=== PATIENT | male | born 1960 | race Caucasian/White ===

== ENCOUNTER 2023-08-20 15:54 | Emergency (ER) | payer BC, SELFPAY ==
[2023-08-20 15:56] VITALS: BP 151/79
[2023-08-20 17:48] VITALS: BMI 25.5
--- NOTE | 2023-08-20 18:13 | ED.GENMED ---
History of Present Illness
<DO Bren Man Last Filed: 08/21/23 22:12>
General
Chief Complaint: Skin Problem
Source: patient
Time Seen by Provider: 08/20/23 17:48
History of Present Illness
History of Present Illness:
62-year-old male presents the emergency room complaining of pain and swelling in his right buttock area. Pain began 2 or 3 days ago and has gotten more severe. Area of redness has extended. No fever or chills. Patient had a liver transplant
2019. He does take his immunosuppressive medications. He takes Plavix but no other oral anticoagulant. Patient denies any abdominal pain.
Past History
<DO Bren Man Last Filed: 08/21/23 22:12>
Past History
ED Past Medical History: Other (Liver transplant in 2019) and Other (DM, cirrhosis, or cancer treated with radioactive implants)
Social History
Tobacco: Other (Cigar smoker)
Alcohol: Former
Family History
Family History: Other (Father with cirrhosis, family history of diabetes and coronary disease)
Phy Exam
<DO Bren Man Last Filed: 08/21/23 22:12>
Physical Exam
Physical Exam:
General: Awake, Alert, Oriented X3. No acute distress.
Vitals: unremarkable
Head: Atraumatic
Eyes: Pupils equal, EOMI
Throat: Airway intact, no exudates
Neck: Trachea midline
Lungs: Clear and equal b/l
Heart: Regular rate, no murmurs
Abd: Soft, Nontender, No pulsatile mass
Buttock: Tenderness palpation over the right buttock. There is erythema noted extending from the top of the gluteal crease down towards the bottom of the buttock. There is induration and fluctuance noted in the center of the erythema on the upper
right near the gluteal crease.
Neuro: Nonfocal
Skin: Warm, dry, no rash
Extremities: pulses equal b/l, no edema
Course
<Pavel Perdomo, - Last Filed: 08/21/23 22:12>
Orders/Labs/Results
Orders:
Orders
08/20/23 18:12
CT Pelvis With Iv Contrast Urgent
Comment:
Reason For Exam: pain, swelling r buttock, eval for deep absces
08/20/23 18:56
Basic Metabolic Panel Urgent
Complete Blood Count/With Diff Urgent
08/20/23 19:19
HYDROmorphone [Dilaudid] 1 mg IV NOW STA
08/20/23 21:28
Oxycodone [Roxicodone] 5 mg PO NOW STA
Abnormal Lab Results
08/20/23
18:56
RBC 3.92 L 10^6/uL
(4.70-6.10)
Hgb 11.3 L g/dL
(13.0-18.0)
Hct 31.8 L %
(39.0-52.0)
Plt Count 112 L 10^3/uL
(130-400)
Absolute Lymphs (auto) 1.1 L 10^3/uL
(1.2-3.4)
Neutrophils % 77.1 H %
(42.2-75.2)
Lymphocytes % 14.8 L %
(20.5-51.1)
Carbon Dioxide 21 L mmol/L
(22-30)
BUN 25 H mg/dl
(9-20)
Creatinine 1.5 H mg/dL
(0.7-1.3)
Glucose 132 H mg/dl
(70-99)
08/20/23 18:56
08/20/23 18:56
Vital Signs
Initial and Last Documented VS:
Initial Vital Signs
Temp Pulse Resp BP Pulse Ox
97.7 F 65 16 151/79 99
08/20/23 15:56 08/20/23 15:56 08/20/23 15:56 08/20/23 15:56 08/20/23 15:56
Last Documented Vital Signs
Temp Pulse Resp BP Pulse Ox
97.7 F 58 20 129/67 98
08/20/23 15:56 08/20/23 21:26 08/20/23 21:26 08/20/23 21:26 08/20/23 21:26
<Doc Chapman MD - Last Filed: 08/20/23 21:30>
Orders/Labs/Results
Orders:
Orders
08/20/23 18:12
CT Pelvis With Iv Contrast Urgent
Comment:
Reason For Exam: pain, swelling r buttock, eval for deep absces
08/20/23 18:56
Basic Metabolic Panel Urgent
Complete Blood Count/With Diff Urgent
08/20/23 19:19
HYDROmorphone [Dilaudid] 1 mg IV NOW STA
08/20/23 21:28
Oxycodone [Roxicodone] 5 mg PO NOW STA
Abnormal Lab Results
08/20/23
18:56
RBC 3.92 L 10^6/uL
(4.70-6.10)
Hgb 11.3 L g/dL
(13.0-18.0)
Hct 31.8 L %
(39.0-52.0)
Plt Count 112 L 10^3/uL
(130-400)
Absolute Lymphs (auto) 1.1 L 10^3/uL
(1.2-3.4)
Neutrophils % 77.1 H %
(42.2-75.2)
Lymphocytes % 14.8 L %
(20.5-51.1)
Carbon Dioxide 21 L mmol/L
(22-30)
BUN 25 H mg/dl
(9-20)
Creatinine 1.5 H mg/dL
(0.7-1.3)
Glucose 132 H mg/dl
(70-99)
08/20/23 18:56
08/20/23 18:56
Vital Signs
Initial and Last Documented VS:
Initial Vital Signs
Temp Pulse Resp BP Pulse Ox
97.7 F 65 16 151/79 99
08/20/23 15:56 08/20/23 15:56 08/20/23 15:56 08/20/23 15:56 08/20/23 15:56
Last Documented Vital Signs
Temp Pulse Resp BP Pulse Ox
97.7 F 58 20 129/67 98
08/20/23 15:56 08/20/23 21:26 08/20/23 21:26 08/20/23 21:26 08/20/23 21:26
Procedures
<DO Bren Man Last Filed: 08/21/23 22:12>
Incision/Drainage/Joint Aspiration
Right Buttock:
Anethesia: 1% Lidocaine with Epi
Preparation: cleaned with Betadine
Type of procedure: incise
Nature of site: abscess
Description of abscess: less than 3cm
Loculations broken up: No
How much fluid was obtained?: none
Treatment: left open for drainage
<DO Bren Man Last Filed: 08/21/23 22:12>
MDM/Problems Addressed
Differential Diagnosis Includes:
cellulitis, cutaneous abscess, deep space abscess
MDM/Problems Addressed:
I+D attempted w/o return of pus. Will obtain CT to exclude deep space abscess
Chronic conditions affecting care: DM and Immunosuppressed
<Pavel Perdomo DO - Last Filed: 08/21/23 22:12>
*Radiology
Radiology exam reviewed: radiology read reviewed
*Critical Care Note
Total Time (30-74mins, 75-104mins- exclusive of procedures): Not Applicable
<Doc Chapman MD - Last Filed: 08/20/23 21:30>
Update Note
Update Note:
CT pelvis report reviewed and discussed with patient. Recommended continuation of his current antibiotic regimen. In addition, advised PCP follow-up or for colorectal surgery consultation as an outpatient, if symptoms persist. Patient expressed
understanding at time of discharge, to the care of his family. Patient otherwise is hemodynamically stable, afebrile, and nontoxic-appearing at time of discharge.
ED Attending Note
<Pavel Perdomo DO - Last Filed: 08/21/23 22:12>
-
Portions of this chart may have been created with voice recognition software.� Occasional wrong word or��sound alike� substitutions may have occurred due to the inherent limitations of voice recognition software.
Discharge Plan
Departure
Patient Disposition: Home (Routine Discharge)
Date of Disposition: 08/20/23
Time of Disposition: 21:00
Patient with high blood pressure during this ER visit?: Yes
Discharge Problem:
Cellulitis
Instructions: Cellulitis (Skin Infection), Adult (DC)
Prescriptions:
New
oxycodone 5 mg tablet
5 mg PO Q8H PRN (Reason: Pain) Qty: 10 0RF
No Action
metoprolol succinate 50 mg Tablet Extended Release 24 Hr
50 mg PO HS
mycophenolate mofetil [CellCept] 250 mg Capsule
500 mg PO BID
clopidogrel [Plavix] 75 mg Tablet
75 mg PO DAILY
tamsulosin [Flomax] 0.4 mg Capsule
0.4 mg PO DAILY
cholecalciferol (vitamin D3) [Vitamin D3] 25 mcg (1,000 unit) Tablet
25 mcg PO DAILY
aspirin 81 mg tablet,chewable
81 mg PO DAILY Qty: 1 0RF
nitroglycerin 0.4 mg tablet, sublingual
0.4 mg sublingual [id number] PRN (Reason: chest pain) Qty: 25 5RF
gabapentin 100 mg Capsule
200 mg PO BID
tacrolimus [Prograf] 1 mg Capsule
4 mg PO Q12H
oxymetazoline [Afrin (oxymetazoline)] 0.05 % [place],Non-Aerosol
2 spray INTRANASAL Q12H PRN (Reason: nasal congestion)
atorvastatin 40 mg tablet
40 mg PO HS
doxycycline hyclate 100 mg Tablet
100 mg PO BID
Humulin 70/30 U-100 Insulin 100 unit/mL (70-30) Suspension
28 unit SC BID
furosemide [Lasix] 40 mg tablet
40 mg PO DAILY Qty: 90 3RF
Rx Instructions:
Please note dose increase
Referrals:
Justyn Leon MD [Active] -
Daniel Magana MD [Family Provider] -
Activity Restrictions/Additional Instructions:
As discussed, please follow-up with your primary care physician and/or referred to colorectal surgeon for reevaluation. In the meantime, please continue to take already prescribed antibiotics. In ED, CT scan did not reveal any evidence of abscess.
Interventions
Interventions:
*Risk Screen - Suicide Last Done: 08/20/23 17:48
*General Assessment Last Done: 08/20/23 15:56
*Neglect/Abuse Screening Last Done: 08/20/23 17:48
ED- Fall Risk Assessment Last Done: 08/20/23 17:48
*ED COVID-19 Vaccine History Last Done: 08/20/23 15:56
*Nursing Disposition Last Done: 08/20/23 21:37
ED-Skin Assessment Last Done: 08/20/23 17:48
Discharge Date and Time
Discharge Date/Time: 08/20/23 21:37
Print Language: EGYPTIAN
[2023-08-20 19:02] LABS: % Basophils 0.3 % (0-2); % Eosinophils 1.1 % (0-6); % Immature Granulocytes 0.3 % (0-0.5); % Lymphocytes 14.8 % (20.5-51.1); % Monocytes 6.4 % (1.7-9.3); % Neutrophils 77.1 % (42.2-75.2); Absolute Eosinophils 0.1 10^3/uL (0-0.7); Absolute Lymphocytes 1.1 10^3/uL (1.2-3.4); Absolute Monocytes 0.5 10^3/uL (0.1-0.6); Absolute Neutrophils 5.6 10^3/uL (1.4-6.5); Hematocrit 31.8 % (39.0-52.0); Hemoglobin 11.3 g/dL (13.0-18.0); Mean Corp Hgb Conc. 35.5 g/dL (33.0-37.0); Mean Corpuscular Hgb 28.8 pg (27.0-31.0); Mean Corpuscular Volume 81.1 fL (80.0-94.0); Mean Platelet Volume 10.3 fL (7.4-10.4); Nucleated Red Blood Cells % 0 % (-); Platelet Count 112 10^3/uL (130-400); Red Blood Cell Count 3.92 10^6/uL (4.70-6.10); Red Cell Dist. Width 13.5 % (11.5-14.5); White Blood Cell Count 7.3 10^3/uL (4.8-10.8)
[2023-08-20] MEDS: DILAUDID 1 MG IV (19:23)
[2023-08-20 19:30] LABS: Blood Urea Nitrogen 25 mg/dl (9-20); Calcium 9.6 mg/dl (8.4-10.2); Carbon Dioxide 21 mmol/L (22-30); Chloride 106 mmol/L (98-107); Estimated Creatinine Clearance 51 ml/min; Glucose 132 mg/dl (70-99); Potassium 4.5 mmol/L (3.5-5.1); Sodium 137 mmol/L (135-145); eGFR 52.97
[2023-08-20 21:26] VITALS: BP 129/67
[2023-08-20] MEDS: ROXICODONE 5 MG PO (21:32)
== END 2023-08-20 21:37 | disposition home or self-care (01) ==
LOC: EMR 15:54
PROVIDERS: EMERGENCY PHYSICIAN Emergency Medicine; FAMILY PHYSICIAN Family Medicine
DX: L03.317 Cellulitis of buttock (principal); R03.0 Elevated blood-pressure reading, without diagnosis of hypertension; E11.9 Type 2 diabetes mellitus without complications; N40.0 Benign prostatic hyperplasia without lower urinary tract symptoms; F17.290 Nicotine dependence, other tobacco product, uncomplicated; Z85.05 Personal history of malignant neoplasm of liver; Z94.4 Liver transplant status; Z79.60 Long term (current) use of unspecified immunomodulators and immunosuppressants; Z79.82 Long term (current) use of aspirin; Z79.4 Long term (current) use of insulin
CPT/HCPCS: 99284; 96374; 72193; 80048; 85025; Q9967

== ENCOUNTER 2023-08-25 08:22 | Inpatient (IN) | payer BC, SELFPAY ==
[2023-08-24 12:13] VITALS: BP 136/60
[2023-08-24 12:29] LABS: % Basophils 0.4 % (0-2); % Eosinophils 1.2 % (0-6); % Immature Granulocytes 0.3 % (0-0.5); % Monocytes 5.2 % (1.7-9.3); % Neutrophils 76.9 % (42.2-75.2); Absolute Eosinophils 0.1 10^3/uL (0-0.7); Absolute Lymphocytes 1.3 10^3/uL (1.2-3.4); Absolute Monocytes 0.4 10^3/uL (0.1-0.6); Hematocrit 33.5 % (39.0-52.0); Hemoglobin 11.8 g/dL (13.0-18.0); Mean Corp Hgb Conc. 35.2 g/dL (33.0-37.0); Mean Corpuscular Hgb 28.2 pg (27.0-31.0); Mean Corpuscular Volume 80.1 fL (80.0-94.0); Mean Platelet Volume 10.6 fL (7.4-10.4); Nucleated Red Blood Cells % 0 % (-); Platelet Count 168 10^3/uL (130-400); Red Blood Cell Count 4.18 10^6/uL (4.70-6.10); Red Cell Dist. Width 12.9 % (11.5-14.5); White Blood Cell Count 7.8 10^3/uL (4.8-10.8)
[2023-08-24 12:47] LABS: ALT (SGPT) 15 U/L (0-50); AST (SGOT) 19 U/L (17-59); Albumin 4.3 g/dl (3.5-5.0); Alkaline Phosphatase 71 U/L (38-126); Blood Urea Nitrogen 18 mg/dl (9-20); Calcium 9.5 mg/dl (8.4-10.2); Carbon Dioxide 23 mmol/L (22-30); Chloride 103 mmol/L (98-107); Glucose 185 mg/dl (70-99); Potassium 5.1 mmol/L (3.5-5.1); Sodium 136 mmol/L (135-145); eGFR 52.97
--- NOTE | 2023-08-24 15:48 | ED.GENMED ---
History of Present Illness
General
Chief Complaint: Skin Problem
Source: patient
Time Seen by Provider: 08/24/23 14:37
History of Present Illness
History of Present Illness:
62-year-old male presents complaining of worsening pain and redness to the right buttock. He was here 5 days ago and was diagnosed with cellulitis of the right buttock. He had a CT scan performed then. He had incision and drainage performed then.
He is a liver transplant patient on antirejection medications. He was started on Augmentin and Bactrim 1 day prior to his visit. Has had 5 total days worth of these antibiotic without any improvement of symptoms. His states he seems off
more weak than usual. Patient notes increased pain. He denies a fever.
Past History
Past History
ED Past Medical History: Other (Liver transplant in 2019) and Other (DM, cirrhosis, or cancer treated with radioactive implants)
Social History
Tobacco: Other (Cigar smoker)
Alcohol: Former
Family History
Family History: Other (Father with cirrhosis, family history of diabetes and coronary disease)
Phy Exam
Physical Exam
Physical Exam:
General: Well-appearing male no acute respiratory distress
HEENT: Normocephalic atraumatic
Heart: Regular rate and rhythm no murmurs
Lungs: Clear no wheeze or rales
skin: Erythema and induration with tenderness noted over the right medial buttock no palpable fluctuance
Extremities: No cyanosis
Course
Orders/Labs/Results
Orders:
Orders
08/24/23 12:20
CMP [Comprehensive Metabolic Panel] Urgent
Complete Blood Count/With Diff Urgent
08/24/23 15:47
Zosyn 3.375 grams IVPB NOW Piperacillin/Tazo 3.375 Gram [Zosyn] 3.375 gram in 50 ml IV NOW
08/24/23 16:00
*Vancomycin IV Pharmacy to Dose VANCOMYCIN Pharmacy to Dose [VANCOCIN Pharmacy to Dose] 1 each Pharmacy To Prepare [Call Pharmacy To Prepare] 0 ml IV PER PROTOCOL
Abnormal Lab Results
08/24/23
12:20
RBC 4.18 L 10^6/uL
(4.70-6.10)
Hgb 11.8 L g/dL
(13.0-18.0)
Hct 33.5 L %
(39.0-52.0)
MPV 10.6 H fL
(7.4-10.4)
Neutrophils % 76.9 H %
(42.2-75.2)
Lymphocytes % 16.0 L %
(20.5-51.1)
Creatinine 1.5 H mg/dL
(0.7-1.3)
Glucose 185 H mg/dl
(70-99)
08/24/23 12:20
08/24/23 12:20
Vital Signs
Initial and Last Documented VS:
Initial Vital Signs
Temp Pulse Resp BP Pulse Ox
98.5 F 72 22 136/60 97
08/24/23 12:13 08/24/23 12:13 08/24/23 12:13 08/24/23 12:13 08/24/23 12:13
Last Documented Vital Signs
Temp Pulse Resp BP Pulse Ox
98.5 F 72 22 136/60 97
08/24/23 12:13 08/24/23 12:13 08/24/23 12:13 08/24/23 12:13 08/24/23 12:13
MDM/Problems Addressed
Differential Diagnosis Includes:
Cellulitis right buttock. Reviewed CT scan from last visit. Patient has liver transplant and is on immunosuppressant medications. This complicates his care. He is been on oral antibiotics for 5 days without improvement. For these reasons we
will admit to hospital. Vancomycin Zosyn ordered. Labs reviewed today
*Critical Care Note
Total Time (30-74mins, 75-104mins- exclusive of procedures): Not Applicable
ED Attending Note
-
Portions of this chart may have been created with voice recognition software.� Occasional wrong word or��sound alike� substitutions may have occurred due to the inherent limitations of voice recognition software.
Discharge Plan
Departure
Patient Disposition: Admit
Date of Disposition: 08/24/23
Time of Disposition: 15:51
Admit to: Telemetry
Presentation/result/management discussed w/ accepting MD/DO: Hospitalist
Discharge Problem:
Cellulitis
Prescriptions:
No Action
metoprolol succinate 50 mg Tablet Extended Release 24 Hr
50 mg PO HS
clopidogrel [Plavix] 75 mg Tablet
75 mg PO DAILY
tamsulosin [Flomax] 0.4 mg Capsule
0.4 mg PO DAILY
cholecalciferol (vitamin D3) [Vitamin D3] 25 mcg (1,000 unit) Tablet
25 mcg PO DAILY
gabapentin 100 mg Capsule
200 mg PO BID
tacrolimus [Prograf] 1 mg Capsule
2 mg PO BID
oxymetazoline [Afrin (oxymetazoline)] 0.05 % [place],Non-Aerosol
2 spray INTRANASAL HS
atorvastatin 40 mg tablet
40 mg PO HS
mycophenolate mofetil 250 mg capsule
500 mg PO BID
sulfamethoxazole-trimethoprim 800-160 mg tablet
1 tab PO BID
Patient Comments:
08/24/2023, filled on 08/19/2023 and instructed to take 1 tablet BID for 10 days.
aspirin 81 mg Tablet,Delayed Release (Dr/Ec)
81 mg PO DAILY
acetaminophen [Tylenol Extra Strength] 500 mg Tablet
1,000 mg PO DAILYPRN PRN (Reason: mild pain)
furosemide 20 mg Tablet
20 mg PO DAILY
amoxicillin-pot clavulanate 500-125 mg tablet
1 tab PO BID
Patient Comments:
08/24/2023, filled on 08/19/2023 and instructed to take 1 tablet BID for 10 days.
oxymetazoline [Afrin (oxymetazoline)] 0.05 % [place],Non-Aerosol
2 spray INTRANASAL DAILYPRN PRN (Reason: nasal congestion)
Humulin 70/30 U-100 KwikPen 100 unit/mL (70-30) Insulin Pen
25 unit SC BID
oxycodone 5 mg tablet
5 mg PO Q8H PRN (Reason: severe pain)
Interventions
Interventions:
*Risk Screen - Suicide Last Done: 08/24/23 13:30
*General Assessment Last Done: 08/24/23 15:50
*Neglect/Abuse Screening Last Done: 08/24/23 13:30
ED- Fall Risk Assessment Last Done: 08/24/23 13:30
*ED COVID-19 Vaccine History Last Done: 08/24/23 13:30
ED-Skin Assessment Last Done: 08/24/23 13:30
Discharge Date and Time
Print Language: GERMAN
[2023-08-24 15:50] VITALS: BMI 32.6
[2023-08-24 15:51] VITALS: BP 119/71
[2023-08-24] MEDS: ZOSYN 50 IV ×2 (15:53→21:37)
[2023-08-24] MEDS: DILAUDID 0.5 MG IV (15:53)
[2023-08-24 16:00] VITALS: BP 118/67
[2023-08-24] MEDS: VANCOCIN 540 MG IV (16:16)
--- NOTE | 2023-08-24 16:45 | HPS.HSE ---
Family Physician
-
Family Physician: Daniel Magana
Chief Complaint
-
Buttock pain
History of Present Illness
62-year-old male with history of liver transplant here with complaints of ongoing pain in the right buttock.
Was evaluated by urgent care 5 days ago and started on empiric antibiotics for cellulitis of the buttock.
Came into the emergency room 4 days ago and had incision and drainage performed of a right buttock gluteal cleft abscess, no return of pus noted. It was left open to drain. He was subsequently discharged.
He returns to the ER today with complaints of ongoing pain especially when sitting. Denies any fevers or chills. States he has been compliant with Augmentin and Bactrim for the past 5 days but despite taking antibiotics does not feel any better.
Denies drainage from his buttock abscess.
Medical History
Past Medical History
Past Medical History: Reports Other
Additional Past Medical History:
Liver transplant -2020 in [facility]
Hepatic cirrhosis
DM 2
Hyperlipidemia
CAD
Past Surgical History: Reports Other
Additional Past Surgical History:
Liver transplant
Social History
Tobacco: Smoker
Alcohol: Former
Drug: None
Personal:
Living: With Family
Family History
Family History: CAD and Diabetes
Allergies / Home Medications
Allergies reflects when Allergies were last updated in [employer].
Home Medications with original date entered in [employer]
Allergy/Medication List:
Allergies
Allergy/AdvReac Type Severity Reaction Status Date / Time
No Known Allergies Allergy Verified 08/24/23 12:17
Home Medications
cholecalciferol (vitamin D3) 25 mcg (1,000 unit) tablet (Vitamin D3) 25 mcg PO DAILY Supplement 12/26/21
clopidogrel 75 mg tablet (Plavix) 75 mg PO DAILY Blood Clot Prevention/Tx 12/26/21
metoprolol succinate 50 mg tablet,extended release 24 hr 50 mg PO HS Blood Pressure 12/26/21
tamsulosin 0.4 mg capsule (Flomax) 0.4 mg PO DAILY Urinary Issue 12/26/21
gabapentin 100 mg capsule 200 mg PO BID Pain 10/14/22
tacrolimus 1 mg capsule, immediate-release (Prograf) 2 mg PO BID Transplant 10/14/22
atorvastatin 40 mg tablet 40 mg PO HS High Cholesterol 10/16/22
oxymetazoline 0.05 % nasal spray (Afrin (oxymetazoline)) 2 spray intranasal HS Congestion 10/16/22
acetaminophen 500 mg tablet (Tylenol Extra Strength) 1,000 mg PO DAILYPRN PRN mild pain 08/24/23
amoxicillin 500 mg-potassium clavulanate 125 mg tablet 1 tab PO BID Infection 08/24/23
aspirin 81 mg tablet,delayed release 81 mg PO DAILY Blood Clot Prevention/Tx 08/24/23
furosemide 20 mg tablet 20 mg PO DAILY Fluid Retention/Swelling 08/24/23
insulin NPH-regular 70-30 U-100 insulin 100 unit/mL subcutaneous pen (Humulin 70/30 U-100 KwikPen) 25 unit SC BID Diabetes 08/24/23
mycophenolate mofetil 250 mg capsule 500 mg PO BID Transplant 08/24/23
oxycodone 5 mg tablet 5 mg PO Q8H PRN severe pain 08/24/23
oxymetazoline 0.05 % nasal spray (Afrin (oxymetazoline)) 2 spray intranasal DAILYPRN PRN nasal congestion 08/24/23
sulfamethoxazole 800 mg-trimethoprim 160 mg tablet 1 tab PO BID prophylaxis 08/24/23
Review of Systems
-
History Source: Patient
A 12 point ROS was completed and negative except as noted: Yes
Physical Exam
Vital Signs
Vital Signs
Temp Pulse Resp BP Pulse Ox
98.5 F 51 16 118/67 98
08/24/23 12:13 08/24/23 16:00 08/24/23 16:00 08/24/23 16:00 08/24/23 16:00
Physical Exam
General: Well Developed, Well Nourished, No Apparent Distress, Comfortable and Obese
HEENT: NormoCephalic, Anicteric and Moist mucous membranes
Respiratory: Clear
Cardiac: S1/S2 and Regular Rhythm
GI: Soft, Non Tender and Non Distended
Genito-urinary: Deferred by me
Musculoskeletal: No Clubbing, No Cyanosis and No Edema
Skin: Warm, Dry and Other (Right medial gluteal cleft induration with erythema and tenderness, small opening from prior incision without drainage)
Neuro: AO x 3
Hematologic/Lymphatic: No Lymphadenopathy
Psych: Calm
Laboratory Results
-
08/24/23 12:20
08/24/23 12:20
Laboratory Results
Total Bilirubin 1.0 mg/dl (0.2-1.3) 08/24/23 12:20
AST 19 U/L (17-59) 08/24/23 12:20
ALT 15 U/L (0-50) 08/24/23 12:20
Alkaline Phosphatase 71 U/L (38-126) 08/24/23 12:20
Impression/Plan
-
Right medial buttock skin and soft tissue infection -rule out abscess. Not draining on exam. Patient appears nontoxic. Admit to [facility], continue IV antibiotics, consult colorectal surgery.
Recent CT of the pelvis noted from August 19 showing inflammatory stranding at the medial aspect of the right buttock with overlying skin thickening consistent with cellulitis. Immediately posterior to the rectum there is a 3 cm soft tissue density
consistent with phlegmon. No signs of abscess.
ROSEMARY -creatinine noted to be 1.5. Baseline 1.1. Differential diagnosis includes volume depletion versus other causes. Hold furosemide. IV fluids overnight.
DM2 with hyperglycemia -most recent hemoglobin A1c was 8.7% in April. He has been on Humulin 70/30 insulin 27 units twice daily at home. He admits to erratic lifestyle, works 2 jobs. He tends to get home late at night and eats a snack around
midnight. He is scheduled to see endocrinology on August 30. Check hemoglobin A1c here. Use low resistance scale, insulin analog 70/30.
CAD -stable. Reduce dose of metoprolol for bradycardia.
Hyperlipidemia -continue atorvastatin.
Liver transplant -continue immunosuppression.
Obesity due to excess calories
Full code
[2023-08-24 17:00] VITALS: BP 122/70
--- NOTE | 2023-08-24 17:18 | CON.MD ---
Consultation - Medical
-
Full consult to be dictated.
History, vitals, labs, imaging reviewed. Patient seen and examined.
62-year-old male who is a smoker and a liver transplant recipient on Plavix with gluteal cleft/right posterior buttock induration/cellulitis and tenderness. No associated fevers or chills. No satiated drainage. On exam there is induration and
tenderness but no fluctuance or crepitus. There are no openings noted aside from the small incision made few days back in the ER during attempted lancing. During a prior visit to the ER for the same 4 days ago he had a CT of the pelvis with IV
contrast which revealed no fluid collection or abscess. There was evidence for fat stranding/phlegmon. There is no subcutaneous gas. He has been on oral antibiotics at home but his symptoms persist. Agree with admission to the hospital for IV
antibiotics. Would hold the Plavix. N.p.o. after midnight just in case. With IV hydration hopefully his creatinine will improve and if necessary we will repeat the CT tomorrow morning depending on his evaluation. I will tentatively hold a time
slot for tomorrow afternoon/evening for incision and drainage versus debridement depending on circumstances. All the above was discussed with the patient and his at the bedside.
Thanks.
[2023-08-24 18:03] VITALS: BMI 32.0
--- NOTE | 2023-08-24 18:04 | PTCARENOTE ---
Pt received from ED via stretcher accompanied by family. Pt ambulated from stretcher to standing scale and then bathroom with steady gait. Pt oriented to staff, environment and call light system.
[2023-08-24 18:09] VITALS: BP 149/75
[2023-08-24 18:12] LABS: Glucose - Point of Care 152 mg/dl (70-99)
[2023-08-24] MEDS: ROXICODONE 5 MG PO (18:43)
[2023-08-24] MEDS: LOVENOX 40 MG SC (18:43)
[2023-08-24] MEDS: NSS 1000 IV (18:44)
[2023-08-24] MEDS: NOVOLOG MIX 70/30 FLEXPEN 25 UNITS SC (18:49)
--- NOTE | 2023-08-24 18:54 | PHA.VAN.IN ---
Assessment
- Assessment
Renal Function: Appears elevated from baseline (12/24/21 BASELINE SCR: 1.1)
Concomitant Antimicrobials: ZOSYN
- Previous Dosing Experience
Previous Regimen: NONE
Plan
- Plan
Initial / Loading Dose: 2GM
Maintenance Regimen: DOSING BY RANDOM LEVELS
Monitoring: RANDOM VANCOMYCIN LEVEL 08/25/23 AM
Pharmacokinetics Vancomycin I
- -
Patient Age: 62
Patient Sex: Male
Vancomycin Day #: 1
Indication: Skin And Soft Tissue (BUTTOCK CELLULITIS)
Requesting Provider: RONEY
Height / Weight:
Height 6 ft 2 in
Actual Weight 112.854 kg
Pertinent Past Medical History: LIVER TRANSPLANT; DM
- Vital Signs / Lab Results
Temp Pulse Resp BP Pulse Ox
98.1 F 54 18 149/75 98
08/24/23 18:09 08/24/23 18:09 08/24/23 18:09 08/24/23 18:09 08/24/23 18:09
Lab Results - Hematology
08/24/23
12:20
WBC 7.8
Lab Results - Chemistry
08/24/23
12:20
BUN 18
Creatinine 1.5 H
Albumin 4.3
[2023-08-24] MEDS: CELLCEPT 500 MG PO (19:57)
[2023-08-24] MEDS: NEURONTIN 200 MG PO (19:57)
[2023-08-24] MEDS: PROGRAF 2 MG PO (19:58)
[2023-08-24 21:21] LABS: Glucose - Point of Care 199 mg/dl (70-99)
[2023-08-24] MEDS: LIPITOR 40 MG PO (21:37)
[2023-08-24] MEDS: TOPROL XL 25 MG PO (21:37)
[2023-08-24 23:01] VITALS: BP 132/62
[2023-08-25] VITALS (10 sets, daily range): BP systolic 95–135; BP diastolic 59–72
[2023-08-25] MEDS: ROXICODONE 5 MG PO ×2 (02:47→18:13)
[2023-08-25] MEDS: ZOSYN 50 IV ×4 (03:01→21:02)
[2023-08-25] MEDS: NSS 1000 IV (05:39)
[2023-08-25 05:48] LABS: Glucose - Point of Care 145 mg/dl (70-99)
[2023-08-25] MEDS: NOVOLOG FLEXPEN-LOW RESISTANCE SC ×2 (06:12→17:30)
[2023-08-25 07:01] LABS: Blood Urea Nitrogen 17 mg/dl (9-20); Calcium 9.1 mg/dl (8.4-10.2); Carbon Dioxide 20 mmol/L (22-30); Chloride 106 mmol/L (98-107); Estimated Creatinine Clearance 81 ml/min; Glucose 127 mg/dl (70-99); Potassium 4.6 mmol/L (3.5-5.1); Sodium 135 mmol/L (135-145); eGFR > 60.00
[2023-08-25 07:02] LABS: Vancomycin Random 9.2 ug/ml
[2023-08-25] MEDS: CELLCEPT 500 MG PO ×2 (07:46→20:59)
[2023-08-25] MEDS: NEURONTIN 200 MG PO ×2 (07:46→20:59)
[2023-08-25] MEDS: FLOMAX 0.400000000000000022 MG PO (07:46)
[2023-08-25] MEDS: ASPIR LOW (ENTERIC COATED) 81 MG PO (07:46)
[2023-08-25] MEDS: PROGRAF 2 MG PO ×2 (07:46→20:59)
[2023-08-25] MEDS: VITAMIN D3 (cholecalciferol) 25 MCG PO (07:46)
--- NOTE | 2023-08-25 08:51 | PHA.VAN.FU ---
Vancomycin Assessment / Plan
- Assessment
Renal Function: SCR Decreasing
WBC's are: WNL
In the past 24 hrs, patient has been: Afebrile
Concomitant Antimicrobials: piperacillin/tazobactam
- Assessment - Therapeutic Drug Monitoring
Random Level: 9.2 - drawn ~13.5H after 2g loading dose
- Dosing Plan
Dosing by Level: Re-dose today (Vanc 1000mg now and 1250mg x1 at 1800)
Patient's estimated CrCl currently predicting Q12H interval; however, clearance may be overestimated by weight
SCR trending down
Will keep dose by level for now to follow trend
- Monitoring Plan
Random Level: 08/25 06
- Follow Up
Pharmacy will continue to follow.
Vancomycin Follow UP
- -
Patient Age: 62
Patient Sex: Male
Vancomycin Day #: 2
Indication: Skin And Soft Tissue
Requesting Provider: Dr. Wilson
Pertinent Antimicrobial Allergies:
NKDA
Height / Weight:
Height 6 ft 2 in
Actual Weight 112.854 kg
Pertinent Past Medical History: BMI ~32, DM 2, Liver transplant (2019)
- Vital Signs / Lab Results
Temp Pulse Resp BP Pulse Ox
98.4 F 54 14 135/70 98
08/25/23 07:21 08/25/23 07:21 08/25/23 07:21 08/25/23 07:21 08/25/23 07:21
Lab Results - Hematology
08/24/23
12:20
WBC 7.8
Lab Results - Chemistry
08/24/23 08/25/23
12:20 05:55
BUN 18 17
Creatinine 1.5 H 1.3
Estimated Creat Clear 81
Albumin 4.3
Therapeutic Drug Monitoring
Random Vancomycin 9.2 ug/ml 08/25/23 05:55
[2023-08-25] MEDS: NOVOLOG MIX 70/30 FLEXPEN SC (08:56)
[2023-08-25] MEDS: TYLENOL 1000 MG PO (08:59)
--- NOTE | 2023-08-25 08:59 | W.PN.HOSP.TC ---
Today's Communication/Plan
-
Await CT scan
N.p.o.
Hold 70/30 insulin
Assessment / Plan
Assessment / Plan
Gen-AAOx3, NAD
HEENT-NC, AT, anicteric, clear oral mm
Neck-supple
CV-reg, no M, +S1/S2
Lungs-clear B/L
Abd-soft, NT, ND
Ext-no edema
Musculoskeletal-no cyanosis, clubbing
Skin-warm and dry, Right medial gluteal cleft induration with erythema and tenderness, small opening from prior incision without drainage
Neuro-grossly non-focal
Psych-calm, cooperative
Right medial buttock skin and soft tissue infection -rule out abscess. Not draining on exam. Patient appears nontoxic. Appreciate colorectal surgery input. Plan to repeat CT scan. Possible incision and drainage later today in the OR.
Recent CT of the pelvis noted from August 19 showing inflammatory stranding at the medial aspect of the right buttock with overlying skin thickening consistent with cellulitis. Immediately posterior to the rectum there is a 3 cm soft tissue density
consistent with phlegmon. No signs of abscess.
ROSEMARY -creatinine noted to be 1.5 on admission, baseline 1.1. Suspect volume depletion related RSOEMARY. Creatinine trending down, 1.3 today with IV fluids. Furosemide on hold.
DM2 with hyperglycemia -most recent hemoglobin A1c was 8.7% in April. He has been on Humulin 70/30 insulin 27 units twice daily at home. He admits to erratic lifestyle, works 2 jobs. He tends to get home late at night and eats a snack around
midnight. He is scheduled to see endocrinology on August 30. Check hemoglobin A1c here. Use low resistance scale, insulin analog 70/30.
Glucose 127 this morning. Hold 7030 while NPO. Discussed with nursing.
CAD -stable. Reduce dose of metoprolol for bradycardia.
Hyperlipidemia -continue atorvastatin.
Liver transplant -continue immunosuppression.
Obesity due to excess calories
Full code
Anticipated Discharge: > 48 hours
Subjective/Interval History
-
Date of Service: August 25, 2023
Patient seen and examined. Still having ongoing buttock pain. No changes. Denies drainage.
Objective Data
-
Labs:
Laboratory Results
08/25/23
05:55
Sodium 135
Potassium 4.6
Chloride 106
Carbon Dioxide 20 L
BUN 17
Creatinine 1.3
Glucose 127 H
Calcium 9.1
Vital Signs:
Vital Signs
Temp Pulse Resp BP Pulse Ox
98.4 F 54 14 135/70 98
08/25/23 07:21 08/25/23 07:21 08/25/23 07:21 08/25/23 07:21 08/25/23 07:21
I&O
08/24/23 08/25/23 08/26/23
06:59 06:59 06:59
Intake Total 1779
Balance 1779
Review of Systems
-
History Source: Patient
All other systems: Reviewed and negative
[2023-08-25] MEDS: VANCOCIN 200 IV (09:03)
[2023-08-25 09:11] LABS: Glycohemoglobin (HgbA1c) 7.4 % (4.0-5.6)
--- NOTE | 2023-08-25 10:58 | W.PN.CRS1 ---
Today's Communication / Plan
-
N.p.o.
CT pelvis
Antibiotics
Possible OR later today
Assessment/Plan
-
62-year-old male with perianal abscess
1. Continue NPO.
2. Continue to hold Plavix.
3. Will order CT pelvis with IV contrast.
4. He has been tentatively added to the OR schedule today. Will await CT.
5. Continue antibiotics.
Subjective Data
Subjective Data
Date of Service: August 25, 2023
Patient states he had a 'rough' night. He still has quite a bit of anal pain.
Objective Data
-
Vital Signs
Temp Pulse Resp BP Pulse Ox
98.4 F 54 14 135/70 98
08/25/23 07:21 08/25/23 07:21 08/25/23 07:21 08/25/23 07:21 08/25/23 07:21
Intake & Output
08/24/23 08/25/23 08/26/23
06:59 06:59 06:59
Intake Total 1779 / 1779
Balance 178 / 178
Intake:
Oral fluids 480 / 480
IV fluids (Total) 1200 / 1200
IV piggybacks 100 / 100
Other:
Number of approximated MODERATE 1
amounts of urine
Lab Results
08/24/23 12:20
08/25/23 05:55
Physical Exam
-
General: No Acute Distress and AOx3
Abdomen: Soft, Non Distended and Non Tender
Rectal: Other (Less erythema noted in the posterior perianal region than yesterday but still quite fluctuant and tender on exam)
Skin: Warm and Dry
[2023-08-25] MEDS: 0.45%NACL 1000 IV ×2 (11:00→15:34)
[2023-08-25 11:25] LABS: Glucose - Point of Care 163 mg/dl (70-99)
[2023-08-25] MEDS: NOVOLOG FLEXPEN-LOW RESISTANCE 1 UNITS SC (12:02)
[2023-08-25 13:23] LABS: Glucose - Point of Care 128 mg/dl (70-99)
--- NOTE | 2023-08-25 14:17 | W.IMMPOSTOP ---
Addendum entered and electronically signed by Leon Doss MD 08/25/23 14:23:
Patient's , Shivani, updated via phone conversation.
Original Note:
Surgical Immed Post Op Note
-
Primary Surgeon: Everett Doss MD
Assisting Surgeon: none
Pre-op Diagnosis: perianal abscess
Post-op Diagnosis: same
Procedure Performed: Incision and drainage perianal abscess
Anesthesia Type: MAC plus local
Specimen / Cultures: abscess cultures
Estimated Blood Loss: 25 cc
Complications: no immediate
Operative Findings: R posterior perianal abscess
Strawberry drain in place covered by gauze and tape.
Sending back to med surg.
Continue antibiotics.
[2023-08-25 14:20] LABS: Glucose - Point of Care 153 mg/dl (70-99)
[2023-08-25] MEDS: DILAUDID 0.5 MG IV (14:38)
[2023-08-25 15:58] LABS: Glucose - Point of Care 136 mg/dl (70-99)
--- NOTE | 2023-08-25 16:00 | PTCARENOTE ---
Pt received from the PACU via bed. Transport was w/o incident. Pt is aaox3, hrr, lungs are clear. Pt's dressing to yasmin anal area saturated w/ serosanquinous fluid. Pt w/ adams drain intact to yasmin rectal area. Dressing changed with abd pads. Will
continue to monitor drainage, but w/adams drain expect to see drainage throughout the shift. Pt placed on telemetry and is currently Sinus Fuentes on the monitor @56/min. VSS, pt is afebrile. Pt and Pt's instructed on plan of care. Pt and
verbalized understanding of instructions. Call colmenares is within reach.
[2023-08-25] MEDS: NOVOLOG MIX 70/30 FLEXPEN 25 UNITS SC (17:28)
[2023-08-25] MEDS: LOVENOX 40 MG SC (17:29)
[2023-08-25] MEDS: VANCOCIN 275 MG IV (18:13)
[2023-08-25] MEDS: LIPITOR 40 MG PO (21:02)
[2023-08-25] MEDS: TOPROL XL 25 MG PO (21:05)
[2023-08-25 21:43] LABS: Glucose - Point of Care 221 mg/dl (70-99)
[2023-08-26 03:17] VITALS: BP 121/67
[2023-08-26] MEDS: ZOSYN 50 IV ×2 (03:22→10:16)
[2023-08-26 05:49] LABS: % Basophils 0.3 % (0-2); % Eosinophils 0.3 % (0-6); % Immature Granulocytes 0.6 % (0-0.5); % Lymphocytes 12.6 % (20.5-51.1); % Monocytes 4.2 % (1.7-9.3); Absolute Lymphocytes 0.8 10^3/uL (1.2-3.4); Absolute Monocytes 0.3 10^3/uL (0.1-0.6); Absolute Neutrophils 5.3 10^3/uL (1.4-6.5); Hemoglobin 10.6 g/dL (13.0-18.0); Mean Corp Hgb Conc. 34.2 g/dL (33.0-37.0); Mean Corpuscular Hgb 28.1 pg (27.0-31.0); Mean Corpuscular Volume 82.2 fL (80.0-94.0); Mean Platelet Volume 10.5 fL (7.4-10.4); Nucleated Red Blood Cells % 0 % (-); Platelet Count 145 10^3/uL (130-400); Red Blood Cell Count 3.77 10^6/uL (4.70-6.10); White Blood Cell Count 6.5 10^3/uL (4.8-10.8)
[2023-08-26 06:06] LABS: Blood Urea Nitrogen 15 mg/dl (9-20); Calcium 9.1 mg/dl (8.4-10.2); Carbon Dioxide 21 mmol/L (22-30); Chloride 106 mmol/L (98-107); Estimated Creatinine Clearance 95 ml/min; Glucose 168 mg/dl (70-99); Potassium 4.9 mmol/L (3.5-5.1); Sodium 134 mmol/L (135-145); eGFR > 60.00
[2023-08-26 07:20] VITALS: BP 128/68
[2023-08-26 07:57] LABS: Glucose - Point of Care 166 mg/dl (70-99)
--- NOTE | 2023-08-26 08:18 | PHA.VAN.FU ---
Vancomycin Assessment / Plan
- Assessment
Renal Function: SCR Decreasing
WBC's are: WNL
In the past 24 hrs, patient has been: Afebrile
Concomitant Antimicrobials: piperacillin/tazobactam
- Assessment - Therapeutic Drug Monitoring
Random Level: 11 - drawn ~11H after previous dose of 1250mg
Patient received 1000mg 09:03 and 1250mg 18:13 yesterday
SCR improving but weight may still overestimate renal function
- Dosing Plan
Dosing by Level: Re-dose today (Vanc 1250mg now then 2nd dose at 1800)
Dosing Comments: continue to trend with BID dosing and unstable renal function
- Monitoring Plan
Random Level: 08/26 06
- Follow Up
Pharmacy will continue to follow.
Vancomycin Follow UP
- -
Patient Age: 62
Patient Sex: Male
Vancomycin Day #: 3
Indication: Skin And Soft Tissue
Requesting Provider: Dr. Wilson
Pertinent Antimicrobial Allergies:
NKDA
Height / Weight:
Height 6 ft 2 in
Actual Weight 112.854 kg
Pertinent Past Medical History: BMI ~32, DM 2, Liver transplant (2019)
- Vital Signs / Lab Results
Temp Pulse Resp BP Pulse Ox
98.3 F 53 18 128/68 99
08/26/23 07:20 08/26/23 07:20 08/26/23 07:20 08/26/23 07:20 08/26/23 07:20
Lab Results - Hematology
08/24/23 08/26/23
12:20 05:19
WBC 7.8 6.5
Lab Results - Chemistry
08/24/23 08/25/23 08/26/23
12:20 05:55 05:19
BUN 18 17 15
Creatinine 1.5 H 1.3 1.1
Estimated Creat Clear 81 95
Albumin 4.3
Microbiology Results
08/25/23 14:00 Gram Stain - Preliminary
Buttock
Therapeutic Drug Monitoring
Random Vancomycin 11.0 ug/ml 08/26/23 05:19
[2023-08-26] MEDS: PLAVIX 75 MG PO (08:38)
[2023-08-26] MEDS: VITAMIN D3 (cholecalciferol) 25 MCG PO (08:38)
[2023-08-26] MEDS: PROGRAF 2 MG PO (08:38)
[2023-08-26] MEDS: ASPIR LOW (ENTERIC COATED) 81 MG PO (08:38)
[2023-08-26] MEDS: NEURONTIN 200 MG PO (08:38)
[2023-08-26] MEDS: FLOMAX 0.400000000000000022 MG PO (08:39)
[2023-08-26] MEDS: CELLCEPT 500 MG PO (08:39)
[2023-08-26] MEDS: NOVOLOG MIX 70/30 FLEXPEN 25 UNITS SC (08:39)
[2023-08-26] MEDS: NOVOLOG FLEXPEN-LOW RESISTANCE 1 UNITS SC (08:40)
[2023-08-26] MEDS: VANCOCIN 275 MG IV (08:41)
--- NOTE | 2023-08-26 09:25 | W.PN.CRS1 ---
Today's Communication / Plan
-
wound care
finish abx
okay for d/c
Assessment/Plan
-
POD#1 I+D of perianal abscess
1. WBC normal. Vitals normal.
2. Change dressing as needed.
3. Patient will continue with drain until office visit with Dr. Doss.
4. Sitz baths twice a day for 7 days.
5. Daily fiber supplement.
6. Stool softeners as needed.
7. Continue Plavix.
8. Finish course of antibiotics.
9. Okay for d/c from our perspective. Follow up with Dr. Doss in 2 weeks.
Subjective Data
Procedure
08/24- I+D of perianal abscess
Subjective Data
Date of Service: August 26, 2023
Patient states he feels much better. He denies fevers or chills. He has not had a bowel movement yet.
Objective Data
-
Vital Signs
Temp Pulse Resp BP Pulse Ox
98.3 F 53 18 128/68 99
08/26/23 07:20 08/26/23 07:20 08/26/23 07:20 08/26/23 07:20 08/26/23 07:20
Intake & Output
08/25/23 08/26/23 08/27/23
06:59 06:59 06:59
Intake Total 1780 / 1780 1550 / 1550
Balance 1780 / 1780 1550 / 1550
Intake:
Oral fluids 480 / 480 240 / 240
IV fluids (Total) 1200 / 1200 1210 / 1210
normosol 250 / 250
IV piggybacks 100 / 100 100 / 100
Other:
Number of approximated MODERATE 1 2
amounts of urine
Lab Results
08/26/23 05:19
08/26/23 05:19
Physical Exam
-
General: No Acute Distress and AOx3
Abdomen: Soft, Non Distended and Non Tender
Rectal: Other (adams drain in place, wound with excaudate, no erythema)
--- NOTE | 2023-08-26 09:26 | W.PN.HOSP.TC ---
Addendum entered and electronically signed by Adam Wilson DO 08/26/23 14:21:
Documentation complete.
Original Note:
Today's Communication/Plan
-
Discharge
Assessment / Plan
Assessment / Plan
Gen-AAOx3, NAD
HEENT-NC, AT, anicteric, clear oral mm
Neck-supple
CV-reg, no M, +S1/S2
Lungs-clear B/L
Abd-soft, NT, ND
Ext-no edema
Musculoskeletal-no cyanosis, clubbing
Skin-warm and dry, Right medial gluteal cleft induration with erythema and tenderness, small opening from prior incision without drainage
Neuro-grossly non-focal
Psych-calm, cooperative
Right medial buttock skin and soft tissue infection -perianal abscess. Repeat CT pelvis on August 24 that showed right-sided perianal abscess measuring 3.8 x 3.6 x 3.0 cm. Underwent successful drainage yesterday, Prieto drain in place. Cultures
from the OR pending. MRSA screen ordered. Can discharge back on Augmentin and Bactrim, follow-up with colorectal surgery in 7 days. Plan to discharge with drain in place. Visiting nurse ordered.
ROSEMARY -due to volume depletion. Resolved. Creatinine 1.1 today. Mild hyponatremia noted.
DM2 with hyperglycemia -most recent hemoglobin A1c was 8.7% in April. He has been on Humulin 70/30 insulin 27 units twice daily at home. He admits to erratic lifestyle, works 2 jobs. He tends to get home late at night and eats a snack around
midnight. He is scheduled to see endocrinology on August 30. Current hemoglobin A1c 7.4%. Use low resistance scale, insulin analog 70/30. Glucose 168 this morning. Follow-up with PCP.
Constipation -last bowel meant 6 days ago. Recommend starting MiraLAX.
CAD -stable. Reduce dose of metoprolol for bradycardia. Follow-up with cardiology. Discussed with patient.
Hyperlipidemia -continue atorvastatin.
Liver transplant -continue immunosuppression.
Obesity due to excess calories
Full code
Dispo - medically stable for discharge today with visiting nurse. Discussed with surgical service. Outpatient follow-up.
32 minutes spent in discharge process.
Anticipated Discharge: Today
Subjective/Interval History
-
Date of Service: August 26, 2023
Patient seen and examined. Feeling much better. No complaints.
Objective Data
-
Labs:
Laboratory Results
08/26/23
05:19
WBC 6.5
Hgb 10.6 L
Hct 31.0 L
Plt Count 145
Sodium 134 L
Potassium 4.9
Chloride 106
Carbon Dioxide 21 L
BUN 15
Creatinine 1.1
Glucose 168 H
Calcium 9.1
Vital Signs:
Vital Signs
Temp Pulse Resp BP Pulse Ox
98.3 F 53 18 128/68 99
08/26/23 07:20 08/26/23 07:20 08/26/23 07:20 08/26/23 07:20 08/26/23 07:20
I&O
08/25/23 08/26/23 08/27/23
06:59 06:59 06:59
Intake Total 1780 / 1780 1550 / 1550
Balance 1780 / 1780 1550 / 1550
Review of Systems
-
History Source: Patient
All other systems: Reviewed and negative
--- NOTE | 2023-08-26 09:34 | W.DS.TRANS ---
DC Summary - [employer]
-
Discharge Instructions:
Discharge Diagnosis/Procedures Perianal abscess
Diet No restrictions,Diabetic, Carb Controlled
Activity As tolerated
Driving Restrictions As prior to admission
Bathing Restrictions None
Other Services VN
Wound Care Sitz baths twice a day for 7 days. At least 10
minutes at a time with warm water.
Continue drain, this will be evaluated at your
office appointment with Dr. Doss.
You may wear a pad to protect your underwear
from any discharge.
Continue your course of antibiotics.
Please use a daily fiber supplement. Recommend a
daily stool softener if using a narcotic, such
as colace.
Instructions: Psyllium
How to Do a Sitz Bath
Stand-Alone Forms:
Changes to Home Medications: Yes
Discharge Medications:
DC Medications w/original date entered in [employer]
cholecalciferol (vitamin D3) 25 mcg (1,000 unit) tablet (Vitamin D3) 25 mcg PO DAILY Supplement 12/26/21
clopidogrel 75 mg tablet (Plavix) 75 mg PO DAILY Blood Clot Prevention/Tx 12/26/21
tamsulosin 0.4 mg capsule (Flomax) 0.4 mg PO DAILY Urinary Issue 12/26/21
gabapentin 100 mg capsule 200 mg PO BID Pain 10/14/22
tacrolimus 1 mg capsule, immediate-release (Prograf) 2 mg PO BID Transplant 10/14/22
atorvastatin 40 mg tablet 40 mg PO HS High Cholesterol 10/16/22
aspirin 81 mg tablet,delayed release 81 mg PO DAILY Blood Clot Prevention/Tx 08/24/23
furosemide 20 mg tablet 20 mg PO DAILY Fluid Retention/Swelling 08/24/23
insulin NPH-regular 70-30 U-100 insulin 100 unit/mL subcutaneous pen (Humulin 70/30 U-100 KwikPen) 25 unit SC BID Diabetes 08/24/23
mycophenolate mofetil 250 mg capsule 500 mg PO BID Transplant 08/24/23
amoxicillin 875 mg-potassium clavulanate 125 mg tablet 1 tab PO BID #14 tabs 08/26/23
metoprolol succinate 25 mg tablet,extended release 24 hr 25 mg PO HS #30 tabs 08/26/23
polyethylene glycol 3350 17 gram oral powder packet (Miralax) 17 g PO DAILY #30 ea 08/26/23
sulfamethoxazole 800 mg-trimethoprim 160 mg tablet 1 tab PO BID prophylaxis #14 tabs 08/26/23
Home Medication Changes
Toprol-XL reduced to 25 mg daily.
Pending Results: No
--- NOTE | 2023-08-26 09:53 | PN.CDI ---
CDI
- -
CDI:
Physician Documentation Request
Admit Date: 08/25/23 08:22
Dear Doctor Katie,
Patient admitted for perianal abscess.
08/24 Hospitalist PN: 'ROSEMARY -creatinine noted to be 1.5 on admission, baseline 1.1. Suspect volume depletion related ROSEMARY. Creatinine trending down, 1.3 today with IV fluids. Furosemide on hold.'
The purpose of this query is not to question medical judgement, but to ensure the accuracy of the conditions reported for your patient.
There is either a lack of clinical support for this condition in the current medical record, or there is a lack of recognized standard criteria to support the condition.
Criteria for ROSEMARY*
1 Increase in serum creatinine by > or = to 0.3 mg/dL (> or = to 26.5 micromol/L) within 48 hours, OR
2 Increase in serum creatinine to > or = to 1.5 times baseline, which is known or presumed to have occurred within 7 days, OR
3 Urine volume < 0.5 nL/kg/hour for six hours
The request is for one of the following:
- Additional documentation to support the condition. Indicate if this is in lieu of what may be considered standard criteria, and/or support why the standard criteria may not be present for this patient.
- A more appropriate diagnosis, reflecting the patient's condition
- ROSEMARY remains a known or suspected condition for this patient and is further supported by (include additional documentation in the medical record)
- ROSEMARY has been ruled out and a more appropriate diagnosis for this patient's condition is .
- Other (please specify)
- Unable to determine
Use of terms such as suspected, likely, concern for, or probable (associated with a specific diagnosis that is being evaluated, monitored, or treated as if it exists) are acceptable and can be coded in the inpatient setting, when documented at the
time of discharge.
Thank you,
Mary Pires RN, BSN
CDI Specialist
Available via [place] text
Please use your independent medical judgment in providing your response.
[2023-08-26 11:15] VITALS: BP 130/66
[2023-08-26 13:03] LABS: TSH 0.97 uIU/ml (0.47-4.68)
--- NOTE | 2023-08-26 13:16 | CM ---
met with patient and at bedside.patient lives with his in house with no betty,his bed and bath is on the first level,he amb i,is I with his adl,he uses a cpap at night,,his pcp is dr del valle and he uses [facility] in [place].he has never
had a vn or been to ip rehab.
patient with a past hx of liver transplant at [facility] is sp I and d of buttocks abscess.iv zosyn,ivf.he is eating ,amb and is stable for dc home with no needs.
== END 2023-08-26 12:20 | disposition home or self-care (01) | DRG 580 ==
LOC: 2 SOUTH 08:22
PROVIDERS: Emergency Medicine; ADMITTING PHYSICIAN Hospitalist; CONSULT PHYSICIAN Surgery; EMERGENCY PHYSICIAN Emergency Medicine; FAMILY PHYSICIAN Family Medicine
PROC: 0D9Q0ZZ Drainage of Anus, Open Approach (ICD-10-PCS; 2023-08-25)
DX: L03.317 Cellulitis of buttock (principal); E87.1 Hypo-osmolality and hyponatremia; K61.0 Anal abscess; N17.9 Acute kidney failure, unspecified; E66.09 Other obesity due to excess calories; Z68.31 Body mass index [BMI] 31.0-31.9, adult; E11.65 Type 2 diabetes mellitus with hyperglycemia
CPT/HCPCS: 72193; 80048; 80053; 80202; 82962; 83036; 84443; 85025; 87070; 87075; 87147; 87205; 93005; 96365; 96366; 96367; 96375; 99285; C1894; Q9967